=== PATIENT | male | born 1960 | race Caucasian/White ===

== ENCOUNTER 2019-07-29 08:35 | Emergency (ER) | payer BC ==
--- OUTSIDE RECORDS SUMMARY | 2019-07-29 08:45 | XMS REPORT | Continuity of Care Document ---
:1960 External Reference #:[id number] Author Name SALLY Lemons Address [address] [place] [address] Care Team Providers Name Role Phone Byron Coyle MD - Internal Care Team Information Stave Machine Tender Medicine Sumeet Marin MD - Family Care Team Information Stave Machine Tender [phone] Medicine Problems Active Problems Provider Date Multiple sclerosis Onset: 03/28/2012 Social History Type Date Description Comments Sex Unknown ETOH Use Occasionally consumes alcohol Tobacco Use Reviewed: 10/07/17 Patient has never smoked Smoking Status Reviewed: 05/12/19 Patient has never smoked Allergies, Adverse Reactions, Alerts Description No Known Drug Allergies Medications Active Medications SIG Qnty Indications Ordering Provider Date Multi For Him 50+ once a day 90tabs Sumeet 05/12/2019 MD Tania Tablets Vitamin E 1 by mouth every Sumeet 04/12/2018 400Unit day MD Tania Capsules Gemfibrozil take one tablet 180tabs E78.1 Sumeet 10/07/2017 600mg by mouth twice a MD Tania Tablets day Immunizations CPT Code Status Date Vaccine Lot # [id number] Given 04/08/2017 Tdap - Tetanus/Diptheria/Acellular Pertussis [id number] Given 11/07/1998 Tetanus And Diptheria (Td) For Adult Use Preservative Free Vital Signs Date Vital Result Comment 07/28/2019 1:24pm Heart Rate 90 /min BP Systolic Sitting 110 mmHg BP Diastolic Sitting 64 mmHg Respiratory Rate 16 /min Body Temperature 99.7 F O2 % BldC Oximetry 97 % room air 05/12/2019 11:19am Height 68.25 inches 5'8.25" Weight 170.00 lb Heart Rate 72 /min BP Systolic 122 mmHg BP Diastolic 58 mmHg Respiratory Rate 16 /min O2 % BldC Oximetry 98 % room air BMI (Body Mass Index) 25.7 kg/m2 Results Test Acquired Date Facility Test Result H/L Range Note Laboratory test 05/27/2019 [facility] PSA Screening 1.429 Normal 0-4.000 [address] ng/[place] [address] [phone] Lipid Profile 05/27/2019 [facility] Triglycerides 105 mg/dL 2 (Trig/Chol/HDL) [address] [place] [address] [phone] Cholesterol 212 mg/dL 3 HDL Cholesterol 50.3 mg/dL 4 LDL Cholesterol 141 mg/dL 5 CBC Auto 05/27/2019 [facility] White Blood 6.7 10^3/uL Normal 3.5-10.[address] [place] [address] [phone] Red Blood Count 4.69 10^6/uL Normal 4.18-5.48 Hemoglobin 15.0 g/dL Normal 14.0-18.0 Hematocrit 43 % Normal 42-52 Mean Corpuscular Volume 91 fL Normal 80-94 Mean Corpuscular Hemoglobin 32 pg High 27-31 Mean Corpuscular HGB Conc 35 g/dL Normal 31-36 Red Cell Distribution Width 13 % Normal 10-15 Platelet Count 247 10^3/uL Normal 150-450 Mean Platelet Volume 8.7 fL Normal 7.4-10.4 Abs Neutrophils 3.1 10^3/uL Normal 1.5-7.7 Abs Lymphocytes 2.6 10^3/uL Normal 1.0-4.8 Abs Monocytes 0.6 10^3/uL Normal 0-0.8 Abs Eosinophils 0.4 10^3/uL Normal 0-0.6 Abs Basophils 0.0 10^3/uL Normal 0-0.2 Abs Nucleated RBC 0.0 10^3/uL Granulocyte % 46.2 % Lymphocyte % 38.5 % Monocyte % 8.5 % Eosinophil % 6.4 % Basophil % 0.4 % Nucleated Red Blood Cells % 0.0 Basic Metabolic 05/27/2019 [facility] Sodium 142 mmol/L Normal 135-[address] [place] [address] [phone] Potassium 4.2 mmol/L Normal 3.5-5.0 Chloride 106 mmol/L Normal 101-111 Co2 Carbon Dioxide 31 mmol/L Normal 22-32 Anion Gap 5 mmol/L Normal 2-11 Calcium 9.7 mg/dL Normal 8.6-10.3 Glucose 99 mg/dL Normal 70-100 Blood Urea Nitrogen 17 mg/dL Normal 6-24 Creatinine 0.97 mg/dL Normal 0.67-1.17 BUN/Creatinine Ratio 17.5 Normal 8-20 Egfr Non- 79.5 >60 Egfr 96.2 >60 6 1 Serum levels of PSA measured using the [employer] DXI Hybritech immunoassay should not be interpreted as absolute evidence of the presence or absence of disease. The PSA value should be used in conjunction with other pertinent clinical diagnostic procedures. The values obtained with different assay methods or kits cannot be used interchangeably. 2 Desirable: <150 Borderline High: 150-199 High: 200-499 Very High: >500 3 Desirable: <200 Borderline High: 200-239 High: >239 4 Low: <40 Desirable: 40-60 High: >60 5 Desirable: <100 Near Optimal: 100-129 Borderline High: 130-159 High: 160-189 Very High: >189 6 Because ethnic data is not always readily available, this report includes an eGFR for both -Americans and non- Americans. The National Kidney Disease Education Program (NKDEP) does not endorse the use of the MDRD equation for patients that are not between the ages of 18 and 70, are , have extremes of body size, muscle mass, or nutritional status, or are non- or non-. According to the National Kidney Foundation, irrespective of diagnosis, the stage of the disease is based on the level of kidney function: Stage Description GFR(mL/min/1.73 m(2)) 1 Kidney damage with normal or decreased GFR 90 2 Kidney damage with mild decrease in GFR 60-89 3 Moderate decrease in GFR 30-59 4 Severe decrease in GFR 15-29 5 Kidney failure <15 (or dialysis) Procedures Date Code Description Status 08/16/2011 [id number] Colonoscopy Completed Medical Devices Description No Information Available Encounters Type Date Location Provider Dx Diagnosis Office Visit 05/12/2019 [facility] Sumeet Z00.00 Encntr for general 11:30a MD Tania adult medical exam w/o abnormal findings Z12.11 Encounter for screening for malignant neoplasm of colon Z12.5 Encounter for screening for malignant neoplasm of prostate E78.5 Hyperlipidemia, unspecified Assessments Date Code Description Provider 07/28/2019 R51 Headache SALLY Lemons 07/28/2019 R50.9 Fever, unspecified SALLY Lemons 07/28/2019 G35 Multiple sclerosis SALLY Lemons 05/12/2019 Z00.00 Encounter for general adult medical Sumeet Marin MD examination without abnormal findings 05/12/2019 Z12.11 Encounter for screening for malignant Sumeet Marin MD neoplasm of colon 05/12/2019 Z12.5 Encounter for screening for malignant Sumeet Marin MD neoplasm of prostate 05/12/2019 E78.5 Hyperlipidemia, unspecified Sumeet Marin MD Plan of Treatment Future Appointment(s):05/13/2020 8:15 am - Sumeet Marin MD at [facility]07/28/2019 - ADEOLA Lemons51 HeadacheComments:LEAVE HERE AND GO DIRECTLY TO THE [facility] ER DISCUSSED.R50.9 Fever, [id number] Multiple sclerosis Functional Status Description No Information Available Mental Status Description No Information Available Referrals Description No Information Available
--- OUTSIDE RECORDS SUMMARY | 2019-07-29 08:45 | XMS REPORT | Continuity of Care Document ---
:1960 External Reference #:[id number] Author Name SALLY Lemons Address [address] [place] [address] Care Team Providers Name Role Phone Byron Coyle MD - Internal Care Team Information Digital Computer Systems Analyst Medicine Sumeet Marin MD - Family Care Team Information Digital Computer Systems Analyst [phone] Medicine Problems Active Problems Provider Date Multiple [...] CPT Code Status Date Vaccine Lot # [id number] Given 04/08/2017 Tdap - Tetanus/Diptheria/Acellular Pertussis [id number] Given 11/07/1998 Tetanus And Diptheria (Td) For [...] Result H/L Range Note Laboratory test 05/27/2019 [facility] PSA Screening 1.429 Normal 0-4.000 [address] ng/[place] [address] [phone] Lipid Profile 05/27/2019 [facility] Triglycerides 105 mg/dL 2 (Trig/Chol/HDL) [address] [place] [address] [phone] Cholesterol 212 mg/dL 3 HDL Cholesterol 50.3 mg/dL 4 LDL Cholesterol 141 mg/dL 5 CBC Auto 05/27/2019 [facility] White Blood 6.7 10^3/uL Normal 3.5-10.[address] [place] [address] [phone] Red Blood Count 4.69 10^6/uL Normal 4.18-5.48 [...] Blood Cells % 0.0 Basic Metabolic 05/27/2019 [facility] Sodium 142 mmol/L Normal 135-[address] [place] [address] [phone] Potassium 4.2 mmol/L Normal 3.5-5.0 Chloride 106 [...] levels of PSA measured using the [employer] DXI Hybritech immunoassay should not be interpreted [...] dialysis) Procedures Date Code Description Status 08/16/2011 [id number] Colonoscopy Completed Medical Devices Description No Information Available Encounters Type Date Location Provider Dx Diagnosis Office Visit 05/12/2019 [facility] Sumeet Z00.00 Encntr for general [...] 8:15 am - Sumeet Marin MD at [facility]07/28/2019 - ADEOLA Lemons51 HeadacheComments:LEAVE HERE AND GO DIRECTLY TO THE [facility] ER DISCUSSED.R50.9 Fever, [id number] Multiple sclerosis Functional Status Description No Information Available Mental Status Description No Information Available Referrals Description No Information Available
[2019-07-29 09:14] VITALS: BP 104/62
--- NOTE | 2019-07-29 09:29 | UC ---
UC General HPI - HPI Summary HPI Summary: Headache started yesterday, elevated temp; temp 101.4 this AM. Cough off on RN notes reviewed + cough + fever + h/a (not wol) Achy Runny nose. + sick contacts No rash. No GI - History of Current Complaint Chief Complaint: UCRespiratory Stated Complaint: FLU LIKE ILLNESS Time Seen by Provider: 07/29/19 09:14 Hx Obtained From: Patient Pain Intensity: 0 - Allergy/Home Medications Allergies/Adverse Reactions: Allergies Allergy/AdvReac Type Severity Reaction Status Date / Time shellfish in large amts AdvReac Diarrhea Uncoded 07/29/19 09:15 Home Medications: Home Medications D-Methorphan/PE/Acetaminophen [Vicks Dayquil Liquicaps] 2 each PO ONCE PRN 07/29 [History Confirmed 07/29/19] Gemfibrozil TAB* [Lopid TAB*] 600 mg PO BID 07/29/19 [History Confirmed ] Guaifen/Dextromethorphan/PE [Mucinex Fast-Max Severe C 2.5-5-100 mg/5Ml] 1 liq PO ONCE PRN 07/29/19 [History Confirmed 07/29/19] PMH/Surg Hx/FS Hx/Imm Hx Previously Healthy: Yes - Surgical History Surgical History: Yes Surgery Procedure, Year, and Place: inguinal hernia hydrocele repair. DEVIATED SEPTUM '92 - Family History Known Family History: Positive: None - Social History Alcohol Use: Occasionally Substance Use Type: None Smoking Status (MU): Never Smoked Tobacco Review of Systems All Other Systems Reviewed And Are Negative: Yes Constitutional: Positive: Fever, Fatigue Skin: Positive: Negative Eyes: Positive: Negative ENT: Positive: Sore Throat, Sinus Congestion Respiratory: Positive: Cough Cardiovascular: Positive: Negative Gastrointestinal: Positive: Negative Genitourinary: Positive: Negative Motor: Positive: Negative Neurovascular: Positive: Negative Musculoskeletal: Positive: Negative Neurological: Positive: Headache Psychological: Positive: Negative Is Patient Immunocompromised?: No Physical Exam Triage Information Reviewed: Yes Appearance: Well-Nourished - sitting up, looks tired but nad Vital Signs: Initial Vital Signs Temp 99.6 F 07/29/19 09:08 Pulse 88 07/29/19 09:08 Resp 20 07/29/19 09:08 BP 104/62 07/29/19 09:08 Pulse Ox 98 07/29/19 09:08 Vital Signs Reviewed: Yes Eye Exam: Normal ENT: Positive: Pharyngeal erythema - uvula midline, post ph redness, no sores / exudates, Nasal congestion, Nasal drainage Neck exam: Normal Neck: Positive: Supple Respiratory Exam: Other - + course cough Respiratory: Positive: Chest non-tender, Lungs clear, Normal breath sounds, No respiratory distress, No accessory muscle use Cardiovascular Exam: Normal Cardiovascular: Positive: Pulses Normal, Brisk Capillary Refill Abdominal Exam: Normal Abdomen Description: Positive: Nontender Musculoskeletal Exam: Normal Neurological Exam: Normal - nonfocal Psychological Exam: Normal - nad Skin Exam: Normal - nondiaphoretic no visible or reported rash Course/Dx - Course Course Of Treatment: Influenza A + d/w pt and spouse. Reviewed coa / tx plan. Aware to seek medical attention if worse / new sx. Questions as posed answered to the best of my ability. - Diagnoses Provider Diagnosis: Influenza A Discharge ED - Sign-Out/Discharge Documenting (check all that apply): Patient Departure All imaging exams completed and their final reports reviewed: No Studies - Discharge Plan Condition: Stable Disposition: HOME Prescriptions: Oseltamivir CAP* [Tamiflu CAP*] 75 mg PO BID #10 cap Patient Education Materials: Influenza (ED) Forms: *Work Release Referrals: Sumeet Marin MD [Primary Care Provider] - Additional Instructions: Hydrate. seek medical attention for worse or new problems. - Billing Disposition and Condition Condition: STABLE Disposition: Home
[2019-07-29 09:30] LABS: Influenza B Molecular POSITIVE (Negative)
== END 2019-07-29 09:51 | disposition home or self-care (01) ==
LOC: UCCORT 08:35
DX: J10.1 Influenza due to other identified influenza virus with other respiratory manifestations (principal); Z91.013 Allergy to seafood
CPT/HCPCS: 99212; G0463